=== PATIENT | female | born 1955 | race Caucasian/White ===

== ENCOUNTER 2017-08-03 07:28 | Day surgery (SDC) | payer BC, MEDICARE ==
--- NOTE | 2017-07-27 19:18 | HP ---
CC: Dr. Porter * ADMITTING HISTORY AND PHYSICAL: DATE OF ADMISSION: 08/03/17 ADMITTING DIAGNOSES: 1. Left flank pain. 2. Left renal calculi. PLANNED PROCEDURE: Shockwave lithotripsy, left renal calculi; possible left stent insertion. SURGEON: Dr. Bonilla. HISTORY OF PRESENT ILLNESS: Jaye Lino is a 62-year-old lady with a history of recurrent bilateral renal calculi. She has been complaining of increasing left- sided discomfort and on a renal ultrasound was noted to have 2 nonobstructing calculi in the left kidney. PAST MEDICAL HISTORY: Significant for: 1. Recurrent renal calculi. 2. Diabetes mellitus (currently off metformin). 3. History of lupus. MEDICATIONS ON ADMISSION: 1. Atenolol 100 mg a day. 2. Detrol LA 4 mg a day. 3. Hydrochlorothiazide 25 mg a day. 4. Prednisone 5 mg a day. 5. Celebrex 200 mg a day. 6. Hydroxychloroquine 20 mg a day. 7. Ditropan 5 mg a day. 8. Vitamin D daily. 9. Lyrica 150 mg 3 times a day. 10. Alendronate 70 mg once a week. 11. Indapamide 5 mg a day. ALLERGIES AND INTOLERANCES: 1. Aspirin. 2. Trazodone. PHYSICAL EXAMINATION GENERAL: Reveals a pleasant middle-aged lady. VITAL SIGNS: Blood pressure is 132/84, pulse 94 per minute and regular, oxygen saturation 98% on room air, temperature 96. LUNGS: Clear bilaterally. CARDIOVASCULAR: Regular rate and rhythm. S1, S2. ABDOMEN: Soft with mild left flank tenderness. IMPRESSION: A 62-year-old lady with left renal calculi causing increased discomfort. Plan is for shockwave lithotripsy, left renal calculi and possible left insertion (decision to be made based on preoperative x-ray findings). [id number]/[facility] #: [id number] MTDD
[~2017-08-03 07:28] MED LIST: Buffered Lidocaine 0.9% SYRIN* 5 ML/SYR SYRINGE INTRADERM ONE; Famotidine IV* 10 MG/ML 2 ML (20 mg) IV ONE
[2017-08-03] MEDS ORDERED: fentaNYL* 50 MCG/ML 2 ML VIAL (100 MCG VIAL) ONE (08:09)
[2017-08-03] MEDS ORDERED: Midazolam* 1 MG/ML 2 ML VIAL (2 MG) ONE (08:09)
[2017-08-03] MEDS ORDERED: Famotidine IV* 10 MG/ML 2 ML (20 mg) ONE (08:12)
[2017-08-03] MEDS ORDERED: Buffered Lidocaine 0.9% SYRIN* 5 ML/SYR SYRINGE ONE (08:12)
--- NOTE | 2017-08-03 08:22 | RAD ---
HISTORY: Shock wave lithotripsy COMPARISONS: July 06, 2017 VIEWS: Frontal views of the abdomen. FINDINGS: BOWEL: There is a nonspecific bowel gas pattern, with nondilated small bowel gas noted. There is a large amount of stool within the colon. CALCULI: There are 2 calculi overlying the lower pole of the left renal parenchymal shadow measuring up to 0.6 cm in size. BONES AND SOFT TISSUES: There is a scoliotic curvature of the spine. Degenerative changes are noted. OTHER FINDINGS: The lung bases are clear. There is no subphrenic gas. IMPRESSION: LEFT NEPHROLITHIASIS
[2017-08-03] MEDS ORDERED: Naloxone* 0.4 MG/ML 1 ML VIAL IV PRN (08:27)
[2017-08-03] MEDS ORDERED: DiMENhydriNATE IV* 50 MG/ML VIAL IV PUSH PRN (08:27)
[2017-08-03] MEDS ORDERED: oxyCODONE TAB* 5 MG TAB PO PRN (08:27)
[2017-08-03] MEDS ORDERED: cefTRIAXone 2 GM in D5W 50 ML BAG IV ONE (09:00)
[2017-08-03] MEDS ORDERED: Iohexol 180 (CONTRAST) 10 ML SDV IV ONE (09:14)
[2017-08-03] MEDS ORDERED: Dexamethasone IV* 4 MG/ML 1 ML (4 MG) ONE (09:49)
[2017-08-03] MEDS ORDERED: Ketorolac INJ* 30 MG/ML 1 ML VIAL ONE (09:49)
[2017-08-03] MEDS ORDERED: Ondansetron INJ* 2 MG/ML VIAL ONE (09:49)
[2017-08-03] MEDS ORDERED: Propofol* 10 MG/ML 20 ML BTL IV PUSH ONE (09:49)
[2017-08-03] MEDS ORDERED: Lidocaine 2% PF * 5 ML VIAL ONE (09:49)
[2017-08-03] MEDS ORDERED: DiMENhydriNATE IV* 50 MG/ML VIAL ONE (11:33)
[2017-08-03 11:37] VITALS: BP 147/97
--- NOTE | 2017-08-03 13:49 | RAD ---
HISTORY: Postop COMPARISONS: February 01, 2016 at 8:05 AM VIEWS: Frontal views of the abdomen. FINDINGS: BOWEL: There is a nonspecific bowel gas pattern, with nondilated small bowel gas noted. CALCULI: Again noted are calculi overlying the left renal parenchymal shadow, stable. There is a left ureteral stent. BONES AND SOFT TISSUES: Degenerative changes are noted of the spine OTHER FINDINGS: None . IMPRESSION: LEFT NEPHROLITHIASIS WITH A LEFT URETERAL STENT
--- NOTE | 2017-08-04 03:56 | OP ---
CC: Dr. Porter * DATE OF OPERATION: 08/03/17 - [facility] DATE OF : 57 SURGEON: Carlos Bonilla MD ANESTHESIOLOGIST: Dr. Strange. ANESTHESIA: General. PRE-OP DIAGNOSES: 1. Left renal calculi. 2. Left flank pain. POST-OP DIAGNOSES: 1. Left renal calculi. 2. Left flank pain. OPERATIVE PROCEDURE: 1. Cystoscopy, left retrograde, left stent insertion. 2. Shockwave lithotripsy of left renal calculi. COMPLICATIONS: None. STENT USED: 6-Sami stent left ureter. INDICATIONS: Jaye Lino is a 62-year-old lady with a history of recurrent renal calculi. She has been having increasing left flank discomfort and is now being brought in for treatment of multiple left renal calculi. POSTOPERATIVE CONDITION: Stable. DESCRIPTION OF PROCEDURE: After induction of general anesthesia, the patient was placed in dorsal lithotomy position. Sequential compression devices were in place and functioning. Initial cystoscopy revealed a normal-appearing bladder. A guidewire was introduced into the left ureter. Retrograde pyelogram revealed mild fullness of the left renal pelvis with two calculi noted in the [id number] pole calyx. A 6-Sami stent was introduced and positioned under fluoroscopy with good proximal and distal positioning obtained. Next, the patient was placed on the lithotripsy table in supine position. The two calculi were localized using fluoroscopy and shockwave lithotripsy was commenced at a rate of 90 shocks per minute. After the initial 300 shocks, there was a brief pause in the lithotripsy for a few minutes to minimize any potential trauma to the kidney. Lithotripsy was then resumed and a total of 2000 shocks were distributed between the two calculi. Good fragmentation was observed. The patient tolerated the procedure satisfactorily and was transferred back to the recovery area in stable condition. [id number]/[facility] #: [id number] MTDD
== END 2017-08-03 11:50 | disposition home or self-care (01) ==
LOC: OR 07:28
PROVIDERS: ATTEND Urology
DX: N20.0 Calculus of kidney (principal); E11.9 Type 2 diabetes mellitus without complications; Z79.84 Long term (current) use of oral hypoglycemic drugs; I10 Essential (primary) hypertension; M06.9 Rheumatoid arthritis, unspecified; E03.9 Hypothyroidism, unspecified; Z85.850 Personal history of malignant neoplasm of thyroid; M32.9 Systemic lupus erythematosus, unspecified
CPT/HCPCS: 74018; C1876; J0696; J1100; J1240; J1885; J2250; J2405; J2704; J3010